=== PATIENT | male | born 1945 | race Caucasian/White ===

== ENCOUNTER → 2020-12-14 13:31 | Outpatient (CLI) | payer OTHER, SELFPAY ==
--- NOTE | 2020-12-14 13:38 | DI.RAD.S_ITS ---
PROCEDURE: XR LUMBAR SPINE MIN 4V INDICATIONS: back pain TECHNIQUE: 5 views of the lumbar spine acquired, including flexion and extension views. COMPARISON: None. FINDINGS: Bones: 5 nonrib-bearing vertebrae are present. Mild dextrocurvature centered at the L2 level. Moderate multilevel disc degeneration, most notably at the L5-S1 level. Moderate L3-L4, L4-L5 and L5-S1 facet joint arthropathy. No vertebral body compression fractures. No suspicious bony lesions. Oblique views demonstrating no pars interarticularis defects. Soft tissues: Overlying bowel gas pattern is normal. No suspicious soft tissue calcifications. Vascular calcifications indicate atherosclerosis. IMPRESSION: Multilevel spondylosis. Dictated by: Bruno RODRIGUEZ Interpreted: Nathalia Laurent MD on 12/14/2020 at 14:00 Approved by: Nathalia Laurent M.D. on 12/14/2020 at 18:15
== END ==
PROVIDERS: PCP Family Medicine; Referring Provider Physical Medicine & Rehabilitation; Visit Provider Physical Medicine & Rehabilitation
DX: M54.9 Dorsalgia, unspecified (principal); M47.816 Spondylosis without myelopathy or radiculopathy, lumbar region; M47.817 Spondylosis without myelopathy or radiculopathy, lumbosacral region
CPT/HCPCS: 72110

== ENCOUNTER → 2021-02-04 07:17 | Outpatient (CLI) | payer OTHER, SELFPAY ==
[2021-02-07 16:44] LABS: COVID19 -Nasal RAPID Negative (Negative)
== END ==
PROVIDERS: PCP Family Medicine; Visit Provider Physical Medicine & Rehabilitation
DX: Z20.822 Contact with and (suspected) exposure to COVID-19 (principal)
CPT/HCPCS: 87635

== ENCOUNTER 2021-02-08 12:47 | Outpatient (CLI) | payer OTHER, SELFPAY ==
[2021-02-08] VITALS (10 sets, daily range): BP systolic 137–170; BP diastolic 60–81; PULSE 55–72; RESP 11–20; TEMP 36.6; O2SAT 95–99
--- NOTE | 2021-02-08 12:51 | DI.RAD.S_ITS ---
PROCEDURE: PAIN L/S FACET INJ/BLK 1ST WILBERT COMPARISON: [facility], CR, XR LUMBAR SPINE MIN 4V, 12/14/2020, 13:38. INDICATIONS: SPONDYLOSIS FINDINGS: Fluoroscopic spot filming was performed to verify placement of spinal needles at the L2-L3 level on both sides at the L4-L5 level on both sides, as labeled on the films. Appropriate location of the needle tips was confirmed by injection of iodinated contrast. IMPRESSION: Intraprocedural examination within normal limits. Dictated by: Bart Sandy M.D. on 02/08/2021 at 14:38 Approved by: Bart Sandy M.D. on 02/08/2021 at 14:38
[2021-02-08] MEDS: fentaNYL 100 MCG/2 ML INJ 50 MCG IV (13:37)
[2021-02-08] MEDS: LIDOCAINE 1% 20 ML 10 ML INJ (13:40)
[2021-02-08] MEDS: IOPAMIDOL 15 ML VIAL 3 ML INJ (13:40)
[2021-02-08] MEDS: BUPIVACAINE 0.5% (PF) VIAL 5 ML INJ (13:40)
[2021-02-08] MEDS: BETAMETHASONE 30 MG/5 ML MDV 12 MG INJ (13:40)
[2021-02-08] MEDS: MIDAZOLAM 5 MG/5 ML VIAL IV (13:48)
--- NOTE | 2021-02-08 13:56 | P.PCN_ITS ---
Date/Time/Diagnoses Date of procedure: 02/08/21 Time of procedure: 13:56 Pre-procedure diagnosis: 1. FACET ARTHROPATHY 2. AXIAL LBP 3. MULTILEVEL DDD Post-procedure diagnosis: same Procedure Notes Procedure: 1. FLUOROSCOPICALLY GUIDED CONTRAST CONTROLLED FACET JOINT INJECTIONS BILATERAL L2/3, L4/5 Indications: August is referred by Dr. Bean for treatment of Axial LBP Physician: Julian Adamson Total Fluoroscopy time (seconds): 13 Total sedation minutes: 16 Complications: none Procedure in detail & Post-procedure care: FINDINGS Multilevel Facet Arthropathy with Clinically significant axial LBP DESCRIPTION OF PROCEDURE Fluoroscopically guided, contrast-controlled bilateral L2/3, L4/5 facet joint injections. Following review of allergy and review of potential side effects and complications, including, but not necessarily limited to, infection, allergic reaction, local tissue breakdown, stroke, temporary or permanent nerve injury, paralysis, and possible , the patient indicated that the patient understood and agreed to proceed. An informed consent document was signed by the patient, witnessed by a nurse, and placed in the patient's chart. Additionally, other treatment options including medications, modalities, and physical therapy were reviewed with the patient. After review of previous anaesthesic history and IV conscious sedation the patient was deemed safe to proceed with today's procedure with IV conscious sedation as ASA class II designation. Safety time-out was performed to confirm patient ID, procedure to be performed and site of procedure. IV sedation was accomplished with a combination of 3mg of Versed and 50mcg of Fentanyl administered by the RN after DO order, titrated to patient comfort during the course of the procedure while the patient remained responsive to all verbal commands In the prone position, following sterile prep and drape of the lumbar region, the posterior aspect of the L2/3, L4/5 facet joints were identified fluoroscopically. The skin was anesthetized via a 25-gauge 1.5-inch needle with 1% lidocaine solution into the corresponding facet joints. At this point, a 22- gauge 3.5-inch spinal needle was atraumatically introduced and advanced under fluoroscopic guidance into the corresponding facet joints. Following negative aspiration, injections of approximately 0.2cc of Isovue 200 confirmed interart icular placement without vascular uptake. The identical procedure was then performed at the L2/3, L4/5 facet joints on the left. Radiological data, including multiple fluoroscopic views of the lumbosacral spine, reveal a spinal needle at the L2/3, L4/5 facet joints bilaterally. Subsequent views show flow of contrast material both superiorly and inferiorly within the joint space without vascular or intrathecal uptake. At this point, a total of 0.5cc including a mixture of 0.25cc Marcaine and 0.25cc betamethasone was injected without complication into each of the corresponding facet joints. The patient tolerated the procedure well without signs or symptoms of complications prior to transfer to the recovery area continued monitoring without incident. The patient was then transferred to the recovery area where they were observed for an appropriate period of time after the injection. The patient reported a VAS score of 7 prior to the procedure and a post-procedure VAS of 0. POST OP INSTRUCTIONS The patient was provided a Pain Log to continue to record their response to the target-specific procedure prior to follow-up visit with their referring phys ician. Additionally, specific post-injection care instructions and a contact number to our office were provided if concerns arise regarding possible complications associated with the procedure are suspected.
== END 2021-02-08 14:15 | disposition home or self-care (01) ==
LOC: RAD 12:50
PROVIDERS: PCP Family Medicine; Referring Provider Family Medicine; Visit Provider Physical Medicine & Rehabilitation
DX: M47.816 Spondylosis without myelopathy or radiculopathy, lumbar region (principal); M48.00 Spinal stenosis, site unspecified; M51.36 Other intervertebral disc degeneration, lumbar region
CPT/HCPCS: 64493; 64494; 99152; J0702; J2250; J3010

== ENCOUNTER → 2021-06-17 15:03 | Outpatient (CLI) | payer OTHER, SELFPAY ==
--- NOTE | 2021-06-17 15:05 | DI.MRI.S_ITS ---
PROCEDURE: MR LUMBAR SPINE WO CON INDICATIONS: Other spondylosis with radiculopathy TECHNIQUE: Noncontrast sagittal T1 spin echo and T2 fast echo, sagittal STIR, axial T1 and T2 fast spin echo through the lumbar spine. In cases with scoliosis, additional coronal T2 fast spin echo may be performed. COMPARISON: [facility], RG, MRI L-SPINE W/WO CONTRAST, 08/13/2020, 16:58. [facility], RG, MRI L-SPINE W/O CONTRAST, 07/05/2017, 10:00. [facility], CR, XR LUMBAR SPINE MIN 4V, 12/14/2020, 13:38. FINDINGS: Image quality: This examination is limited by involuntary motion artifact. Alignment and Curvature: There is minimal retrolisthesis at the L1-L2 level and the L4-L5 level. Mild dextroconvex scoliotic curvature is seen. Bone Marrow: Marrow is of normal overall signal. No acute vertebral body compression fractures. Spinal Cord: Conus medullaris terminates at the T12-L1 level. Visualized cord demonstrates normal signal and size. Paraspinous Soft Tissues: No paravertebral masses. This patient has transitional lumbar anatomy. For the purposes of this examination, the level with the last well-developed disc space is considered to be L5-S1. This numbering scheme is chosen to remain consistent with the prior outside lumbar spine report. T12-L1: The disc height and disk signal are well-preserved. Mild generalized disc bulge is seen. Moderate facet joint hypertrophy is seen. Moderate bilateral neural foraminal narrowing is seen. No significant central canal narrowing is seen. These imaging findings have progressed compared to the prior study. L1-L2: The disc height is well-preserved. Loss of disc signal is seen at this level. Moderate disc bulge is seen, which is eccentric to the right. Moderate facet joint hypertrophy is seen. Moderate bilateral neural foraminal narrowing is seen. Moderate central canal narrowing is seen. The degree of central canal narrowing is progressed compared to the prior. L2-L3: Mild loss of disc height is seen. Loss of disc signal is seen. At least moderate disc bulge is seen. There is a central/left disc protrusion. At least moderate facet hypertrophy is seen. Associated hypertrophy of the ligamentum flavum can be seen. There is mild right-sided and at least moderate left-sided neural foraminal narrowing seen. There is a mild degree of compression seen upon the exiting left L2 nerve root. Moderate to severe central canal narrowing is seen, as on series 5, image 15. These degenerative changes are slightly progressed compared to 2020. L3-L4: The disc height is well-preserved. Loss of disc signal is seen at this level. Moderate disc bulge is seen, with a central disc protrusion. Moderate to prominent facet hypertrophy is seen at this level. There is at least moderate right-sided and moderate to severe left-sided neural foraminal narrowing seen. A degree of compression can be seen upon the exiting left L3 nerve root. Moderate central canal narrowing is seen. The degree of central canal narrowing is slightly progressed compared to 2020. L4-L5: Moderate loss of disc height is seen. Loss of disc signal is seen. Moderate disc bulge is seen, which is eccentric to the right. There is a mild central disc protrusion. There is a focal annular fissure seen posteriorly. At least moderate facet hypertrophy is seen at this level. There is at least moderate bilateral neural foraminal narrowing seen. There is a degree of compression seen upon the exiting nerve roots. Moderate to severe central canal narrowing is seen. Stable from the prior study. L5-S1: The disc height and disc signal are relatively well preserved. Mild generalized disc bulge is seen. Moderate facet joint hypertrophy is seen. There is moderate right-sided and no significant left-sided neural foraminal narrowing seen. No significant central canal narrowing is seen. No significant change from the prior. IMPRESSION: Multiple levels of lumbar spine degenerative change are seen, which are mildly progressed at several levels compared to 2020. Dictated by: Bart Sandy M.D. on 06/17/2021 at 18:04 Approved by: Bart Sandy M.D. on 06/17/2021 at 18:11
--- NOTE | 2021-06-17 15:59 | DI.RAD.S_ITS ---
PROCEDURE: XR HIP W PEL IF DONE BILAT 2V INDICATIONS: BILATERAL HIP PAIN TECHNIQUE: 3 views of the hip were acquired. COMPARISON: None. FINDINGS: Bones: No fractures or dislocations. No suspicious bony lesions. The visualized pelvic ring appears intact. Mild joint narrowing with periarticular osteophyte formation of the hip joint bilaterally. Degenerative disc and facet disease involves the inferior lumbar spine. Soft tissues: No suspicious soft tissue calcifications or masses. IMPRESSION: Mild symmetric hip joint degeneration and degenerative disc and facet disease involving the lower lumbar spine. Dictated by: Bruno Mabry [facility] Interpreted: Stanislav Portillo MD on 06/17/2021 at 16:23 Transcribed by: REGIS on 06/17/2021 at 16:25 Approved by: Stanislav Portillo M.D. on 06/17/2021 at 17:55
== END ==
PROVIDERS: PCP Family Medicine; Referring Provider Neurological Surgery; Visit Provider Neurological Surgery
DX: M47.26 Other spondylosis with radiculopathy, lumbar region (principal); M25.551 Pain in right hip; M25.552 Pain in left hip; M16.0 Bilateral primary osteoarthritis of hip
CPT/HCPCS: 72148; 73521

== ENCOUNTER → 2024-10-27 10:57 | Outpatient (CLI) | payer OTHER, SELFPAY ==
--- NOTE | 2024-10-27 11:00 | EKG_ITS ---
[place] [id number] [place] [id number] Test Date: 2024-10-27 Pat Name: August Reyes Department: [facility] Room: Gender: Male [employer]: EVON : 1945 Requested By: Order Number: [id number] Reading MD: Forrest Moreno MD Measurements Intervals [place] Rate: 67 P: 28 MT: 180 QRS: -27 QRSD: 94 T: -7 QT: 388 QTc: 409 Interpretive Statements Normal sinus rhythm Minimal voltage criteria for LVH, may be normal variant ( R in aVL ) Electronically Signed On 10-27-2024 16:46:02 PST by Forrest Moreno MD
[2024-10-27 12:15] LABS: Add Manual Diff / Slide Review NO; Basophils Absolute Auto 100 /uL (0-100); Basophils Percent Auto 1.2 % (0-2); Eosinophils Absolute Auto 100 /uL (0-450); Eosinophils Percent Auto 1.3 % (2-4); Hematocrit 40.8 % (41-53); Hemoglobin 13.7 g/dL (13.5-17.5); Lymphocytes Absolute Auto 2100 /uL (1100-4500); Lymphocytes Percent Auto 32.7 % (25-40); Mean Corpuscular HGB Conc 33.6 % (30-36); Mean Corpuscular Hemoglobin 29.8 PG (26-34); Mean Corpuscular Volume 88.8 fL (80-100); Monocytes Absolute Auto 500 /uL (0-900); Monocytes Percent Auto 7.4 % (3-14); Neutrophils Absolute Auto 3800 /uL (1500-7000); Neutrophils Percent Auto 57.4 % (50-75); Platelet Count 257 X10^3/uL (150-400); Red Cell Distribution Width 13.6 % (11.6-14.8); White Blood Cell Count 6.6 X10^3/uL (4.5-11.0)
[2024-10-27 12:24] LABS: Hemoglobin A1C% w Est Avg Glu 5.8 % (4.0-6.0)
[2024-10-27 12:31] LABS: Appearance Urine UA CLEAR; Bilirubin Urine UA NEGATIVE (NEGATIVE); Color Urine UA YELLOW; Glucose Urine UA NEGATIVE (Negative); Ketones Urine UA NEGATIVE (NEGATIVE); Leukocyte Esterase Urine UA NEGATIVE (NEGATIVE); Nitrite Urine UA NEGATIVE (Negative); Occult Blood Urine UA NEGATIVE (Negative); Protein Urine UA NEGATIVE (Negative); Specific Gravity Urine UA <=1.005 (1.000-1.035); Urobilinogen Urine UA 0.2 E.U./dL (0.2); pH Urine UA 5.5 (4.5-8.0)
[2024-10-27 12:46] LABS: BUN Creatinine Ratio 12.4 (6-22); Blood Urea Nitrogen 15 mg/dL (9-20); Calcium 9.4 mg/dL (8.4-10.2); Carbon Dioxide 26 mmol/L (22-32); Chloride 103 mmol/L (98-107); Estimated Glomerular Filt Rate > 60 mL/min (>60); Glucose 128 mg/dL (80-110); HEMOLYSIS < 15 (0-50); Potassium 4.4 mmol/L (3.4-5.1); Sodium 139 mmol/L (137-145)
[2024-10-27 12:50] LABS: Bacteria Urine None Seen; Culture Indicated Urine Cult Not Indicated; RBC Urine None Seen (0-5/HPF); Squamous Epithelial Cell Urine None Seen (0-5/HPF); Urine Volume 10mL (spun); WBC Urine None Seen (0-5/HPF)
== END ==
PROVIDERS: PCP Family Medicine; Referring Provider Orthopaedic Surgery; Visit Provider Orthopaedic Surgery
DX: Z01.818 Encounter for other preprocedural examination (principal); R73.9 Hyperglycemia, unspecified; Z01.812 Encounter for preprocedural laboratory examination; N39.0 Urinary tract infection, site not specified
CPT/HCPCS: 36415; 80048; 81001; 83036; 85025; 93005; 93010

== ENCOUNTER → 2024-11-27 11:31 | Outpatient (CLI) | payer OTHER, SELFPAY ==
--- NOTE | 2024-11-27 11:33 | DI.US.S_ITS ---
PROCEDURE: US ABD AORTA ANEURYSM SCREEN INDICATIONS: EVAL AAA TECHNIQUE: Real time scanning was performed of the aorta and iliac arteries, with image documentation. COMPARISON: None. FINDINGS: Aorta: Proximal aortic diameter measures 2.4 cm. Mid-aorta measures 2.1 cm. Distal aortic diameter is 1.3 cm. Iliac arteries: Right common iliac artery measures 1.2 cm. Left common iliac artery measures 1.1 cm. IMPRESSION: No evidence of aortic aneurysm. Dictated by: Duarte Meyer M.D. on 11/27/2024 at 13:34 Approved by: Duarte Meyer M.D. on 11/27/2024 at 13:35
== END ==
PROVIDERS: PCP Family Medicine; Referring Provider Physician Assistant; Visit Provider Physician Assistant
DX: I71.40 Abdominal aortic aneurysm, without rupture, unspecified (principal)
CPT/HCPCS: 76706

== ENCOUNTER 2024-12-16 06:15 | Day surgery (SDC) | payer OTHER, SELFPAY ==
[2024-12-08 09:29] VITALS: BMI 29.7
[2024-12-16] VITALS (8 sets, daily range): BP systolic 116–191; BP diastolic 71–91; PULSE 62–84; RESP 12–21; TEMP 36.1–37.1; O2SAT 92–98; BMI 28.9
--- NOTE | 2024-12-16 06:33 | DI.RAD.S_ITS ---
PROCEDURE: XR KNEE LT 1TO2V INDICATIONS: TKA TECHNIQUE: 2 view(s) of the knee acquired. COMPARISON: None. FINDINGS: Bones: Patient is status post knee joint arthroplasty. Hardware components are in expected positions. Visualized bony structures are intact. Soft tissues: Overlying postoperative changes are noted. IMPRESSION: Expected post-operative appearance of a knee arthroplasty. Dictated by: Kassie Garces MD, PhD on 12/17/2024 at 10:47 Approved by: Kassie Garces MD, PhD on 12/17/2024 at 10:47
[2024-12-16] MEDS: VANCOMYCIN 1,000 MG in SODIUM CHLORIDE 0.9% 250 ML 250 MG IV (06:56)
[2024-12-16] MEDS: ACETAMINOPHEN 325 MG TABLET 975 MG PO (06:59)
[2024-12-16] MEDS: FAMOTIDINE 20 MG/2 ML VIAL IV (06:59)
[2024-12-16] MEDS: CELECOXIB 200 MG CAPSULE PO (06:59)
[2024-12-16] MEDS: LACTATED RINGERS 1,000 ML 42 ML IV (06:59)
--- NOTE | 2024-12-16 07:41 | PM.PREOP ---
Pre-operative Note Interval Note History & Physical reviewed/Exam performed by Physician: Yes Changes to H&P: No
--- NOTE | 2024-12-16 07:41 | PM.OP.1 ---
Operative Date/Time/Diagnoses Date of procedure: 12/16/24 Time of procedure: 07:55 Pre-op diagnosis: Left knee OA Post-op diagnosis: same Procedure & Clinicians Procedure: Left total knee arthroplasty Same procedure as scheduled: Yes Indications: The patient has had progressively worsening left knee pain with radiographic changes consistent with arthritis. Non-operative management has failed and the patient has requested total knee replacement. The risks, benefits and alternatives to surgery were discussed with the patient prior to proceeding. Risks discussed included, but were not limited to, failure to relieve pain, stiffness, infection, nerve damage, deep venous thrombosis, pulmonary embolism, stroke, coma, heart attack, permanent paralysis and , as well as the potential need for eventual revision of the prosthetic. Surgeon: Amelie Patel Relationship Advisor: Jeny Laurent Anesthesia Type: General and Spinal Operative Notes Findings: Severe left knee osteoarthritis, adequate stability, adequate bone Closure Type: primary Specimen(s): none sent Prosthetic devices, grafts, tissues, transplants, or devices: Patel and nephmyrna issa BCS2 size 7 femur, size 6 tibia, +9 poly, 35 oval patella Estimated Blood Loss (mL): 250 Blood products transfused: none Tourniquet time (min): 99 Procedure in detail: The patient was seen in the pre-operative area, where the patient identified the left knee as the operative site and this was marked with my initials. The patient received pre-operative antibiotics, and was taken to the operating room and placed on the operative table in the supine position. After satisfactory anesthesia, a manager maritime out was performed. The left leg was encircled with a tourniquet about the proximal thigh, and the leg was prepared from the toes to the tourniquet with ChloroPrep in the usual fashion and draped through sterile drapes. The leg was elevated and exsanguinated with Eschmark bandage and the tourniquet inflated to [250] mmHg pressure. A PA was used during the procedure and was essential for intraoperative retraction and safe implantation of the components. The knee was approached through an approximately 18 cm incision centered over the left knee patella and carried into the knee through a medial parapatellar arthrotomy. Portion of the medial and lateral meniscus was resected. Soft tissue was carefully mobilized around the patella the patella was measured with a caliper. Bone was resected from the patella and the patellar height was reconstituted with up an appropriate sized patellar component. For a cover was then placed on the patella. A small amount of additional medial and lateral meniscus was resected. Audie pins and an adjustable proximal tibial guide was pinned to the tibia in preparation for robotic assisted knee replacement. A plan was carefully taken developed and optimized in order to allow full range of motion and good stability. Cori robotic assisted bur was used for the distal femoral resection. It looked like an appropriate distal femoral cut and the cut was made without difficulty. The rotation was assessed and the appropriate size femoral guide was placed on the distal femur and finishing cuts were made. There was no evidence of notching. The anterior, posterior and chamfer cuts were then made. The posterior osteophytes and soft tissues were then removed. The posterior capsule was injected with part of a mixture of 60 ml 0.25% Marcaine mixed with 266 mg Exparel for post operative pain control. The remainder of this mixture was injected into the capsule and subcutaneous tissues during cement curing. The tibial guide was meticulously adjusted in order to optimize the cut. Proximal tibial cut was made without difficulty. The rotation was assessed. The patient was placed in extension residual medial and lateral meniscus as well as any residual bone was carefully resected. [No] additional tibia was resected. Hemostasis was achieved especially posteriorly. Additional local was injected into the posterior capsule. The extension gap was assessed. The femoral component was trial was placed and the notch was finished. Trial tibial and femoral components were then placed and the knee placed through a range of motion. Range of motion was [0-130], with good stability throughout the range. The trials were then removed, and the tibia was finished. The bone was prepared with pulsatile lavage, and dried with a sponge. Cement was applied and the final prosthetics placed. Excess cement was removed during and after cement curing. A brief Betadine soak was performed. After confirming there was no extruded cement posteriorly, the final tibial insert was placed. The knee was copiously irrigated and the tourniquet deflated. Hemostasis was obtained with the Bovie cautery. The capsule was closed with interrupted # 1 suture. The subcutaneous layer was closed with barbed sutures, and the skin with a running 3-0 V-Lock suture and Surgical glue. An Aquacel Ag dressing was applied and the patient was taken to recovery having tolerated the procedure well. Complications: none Post-operative Condition: stable Disposition: Acute Care Plan for aftercare: The patient will be maintained on a standard total knee replacement protocol with weight bearing as tolerated. The patient will receive aspirin and sequential compression devices for DVT prophylaxis. The patient will be discharged home when safe for the home environment.
[2024-12-16] MEDS: CEFAZOLIN 2 GM/100 ML PREMIX 100 ML IV (08:00)
[2024-12-16] MEDS: TRANEXAMIC ACID 1,000 MG VIAL 1000 MG INJ ×2 (08:10→10:18)
[2024-12-16] MEDS: BUPIVACAINE 0.25% (PF) 60 ML, EPINEPHrine 0.3 MG INJ (08:37)
--- NOTE | 2024-12-16 08:37 | SUR.OPER ---
Supine on padded OR bed. Pillow under head, arms secured on padded armboards <90 degree abduction. Safety belt across torso. Non-operative leg secured with tape over blanket over lower leg. Operative leg secured in DeMayo positioner. Foam padded brace at thigh of operative leg.
[2024-12-16] MEDS: BUPIVACAINE LIPOSOME 266 MG/20 ML VIAL INJ (10:25)
--- NOTE | 2024-12-16 12:00 | PT.IIE ---
Current Diagnoses Unilateral primary osteoarthritis, left knee (12/16/24) Surgery Performed Operation Date: 12/16/24 07:45 Actual Procedures p Total Knee Arthroplasty - Robot(Left) - Amelie Patel MD Surgical History (Last Updated 12/08/24 @ 10:36 by Emily Leija, RN) H/O shoulder surgery (1972) H/O sinus surgery History of carpal tunnel release History of lumbar surgery (2016) Hx of bilateral cataract extraction Hx of prostatectomy (2008) S/P left knee arthroscopy (1988) Medical History (Last Updated 12/08/24 @ 10:38 by Emily Leija, RN) Diabetes Facet arthropathy, lumbar GERD (gastroesophageal reflux disease) HLD (hyperlipidemia) HTN (hypertension) Left knee DJD Multilevel spinal stenosis LUBA on CPAP Prostate cancer Physical Therapy Inpatient Evaluation/Re-Eval M1 PT/OT-IP Prior Functional Status Start: 12/16/24 12:54 Freq: NEEDED Status: Active Protocol: Document 12/16/24 12:00 AB (Rec: 12/16/24 13:10 [id number]) Medical Review Prior Functional Status Medical History Reviewed Yes Communication able to make needs known; with some confusion; very [place] Mobility and Gait pt stated that he was modified independent with all mobilities and ambulation without AD Social History Household Members spouse Living Arrangements House Number of Floors (Floors) Two Floors Number of Stairs To Enter/Railing? 2 steps without rails to enter has 7 steps R rail ascending + 6 steps B rail to get to bedroom level pt plans to stay on the first level of the house for a few days and will be sleeping on a recliner Home Environment Standard Height Toilet,Walk in Shower Home Equipment Front Wheel Walker,Straight Cane Additional Social History Comment pt has an adjustable bed and a recliner M2 PT-IP Current Condition Start: 12/16/24 12:54 Freq: NEEDED Status: Active Protocol: Document 12/16/24 12:00 AB (Rec: 12/16/24 13:10 AB [id number]) Physical Therapy Current Condition Current Condition Evaluation Date 12/16/24 Treatment Diagnosis s/p L TKA; difficulty in walking Onset Date 12/16/24 M3 PT-IP Subjective Start: 12/16/24 12:54 Freq: NEEDED Status: Active Protocol: Document 12/16/24 12:00 AB (Rec: 12/16/24 13:10 AB [id number]) Subjective Physical Therapy Visit Type Type Initial Evaluation Visit Start Time 12:00 Visit Stop Time 12:51 Number of IRRIGATION SYSTEM INSTALLER Visits 0 Physical Therapy Visit Comments Patient Comments agreeable to do PT Therapy Pain Assessment Pain When Pain Assessed At Rest Pain Present Pain Present Pain Reported Location Left Knee Intensity 3 Pain Management Techniques Apply Cold,Distraction, Modification of Treatment,Re- positioning,Timing of Activity with Medications M4 PT-IP Mobility and Gait Start: 12/16/24 12:54 Freq: NEEDED Status: Active Protocol: Document 12/16/24 12:00 AB (Rec: 12/16/24 13:10 AB [id number]) PT-Bed Mobility Assessment Supine to Sit Supine to Sit Standby Assistance Sit to Supine Sit to Supine Standby Assistance PT-Transfer Assessment Sit to and From Stand Sit to and from Stand Contact Guard Assistance,1 Person Assistance,Use of Upper Extremities Equipment Transfer Assistive Device Gait Belt,Front Wheeled Walker Orthotic/Prosthetic Devices or Brace: No Comments Mobility Comments pt seen in PACU. pt in bed. spouse in room. obtained PLOF and home set up. BP: 140/72. pt completed supine to sit SBA . able to sit on EOB SBA. no c /o dizziness. BP: 144/78. completed sit to stand CGA and ambulated in room ~ 20 ft CGA . pt sat back on EOB. caregiver training conducted. educated spouse on how to use safety belt and how to assist pt. spouse was able to put safety belt on pt and assisted pt with sit to stand and ambulation in room using fWW ~ 25 ft CGA. pt sat back on EOB. stair climbing training. educated pt and spouse on how to do stairs using SPC + COOK CHILL TECHNICIAN. PT assisted pt on first attempt requiring mod to max A and max cues. spouse assisted pt but needing max cues from PT on how to do stairs safely. spouse gets anxious easily and also has memory issues. repeated up/ down steps 3 more times with spouse assisting and cueing pt . advised spouse to have another pt to assist them for pt to safely get into the house. spouse stated that they has a neighbor that might assist them. pt sat back on EOB. post-op folder provided and reviewed contents. pt completed sit to supine SBA. positioned pt in bed. ice machine on. left pt with spouse and OT. pt and spouse without further concerns. Gait Assessment Gait Gait Assistance Required: Standby Assistance Distance (Feet) 25 Able to Maintain Weight Bearing Status Yes During Gait Assistive Devices Assistive Device Gait Belt,Front Wheeled Walker Orthotic/Prosthetic Devices or Brace: No Gait Deviations General Gait Pattern Antalgic,Decreased Stride Length,Decreased Feet Clearance Factors Limiting Gait Function Factors Limiting Gait Function Decreased Activity Tolerance, Decreased Strength,Difficulty Following Directions,Limited Range of Motion,Pain,Poor Balance,Poor Safety Awareness Stair Climbing Assessment Evaluation Level of Assist On Stairs Moderate Assistance,Maximal Assistance,1 Person Assistance Devices Stair Climbing Assistive Devices Straight Cane Technique/Endurance Stair Climbing Direction Ascend and Descend Stair Climbing Technique Step to Step Number of Steps Climbed 1 Query Text: Stair Climbing Set # Repetitions (reps) 5 PT-Balance Assessment Sitting Balance and Reactions Static Sitting Balance Ability Normal Dynamic Sitting Balance Ability Good Standing Balance and Reactions Static Standing Balance Ability Fair Dynamic Standing Balance Ability Fair Device Used FWW M5 PT-IP Objective Assessments Start: 12/16/24 12:54 Freq: NEEDED Status: Active Protocol: Document 12/16/24 12:00 AB (Rec: 12/16/24 13:10 [id number]) Orientation Orientation/Cognition Level of Alertness Alert Orientation Name,Place,Situation Language Function Ability Hard of Hearing Safety Awareness Decreased Safety Awareness Memory Description Short Term Impaired Comments with slight confusion Gross Range of Motion Lower Extremity ROM Assessment Left Impaired Impairments L knee flexion: ~ 70 deg Strength Lower Extremity Strength Assessment Left Impaired Knee 3+/5 Sensation Assessment Sensation Gross Sensation WNL Muscle Tone Muscle Tone WNL Yes M6 PT-IP Treatment Start: 12/16/24 12:54 Freq: NEEDED Status: Active Protocol: Document 12/16/24 12:00 AB (Rec: 12/16/24 13:10 [id number]) Physical Therapy Treatment Education Education Provided Precautions,Weight Bearing Status,Post-Op Packet,Safety M7 PT-IP Assessment and Plan Start: 12/16/24 12:54 Freq: NEEDED Status: Active Protocol: Document 12/16/24 12:00 AB (Rec: 12/16/24 13:10 [id number]) PT Summary Assessment and Plan Potential Rehabilitation Potential Fair Summary Impairments Pain,ROM,Strength,Balance, Coordination,Sensation,Tone, Cognition,Bed Mobility, Transfers,Gait,Activity Tolerance Assessment Summary pt is an 79 y/o M s/p L TKA POD 0. pt is WBAT on LLE. pt requiring CGA with transfers and ambulation and mod to max A for stair climbing using SPC + COOK CHILL TECHNICIAN. caregiver training conducted and spouse able to assist pt. Recommending pt to have another person to assist them to get into the house for safety. pt has out pt PT set up. Goals Bed Mobility Goal Independent Transfer Goal Independent,Front Wheeled Walker Gait Goal Independent,Front Wheel Walker Gait Distance 250 Other Goals up/down 2 steps using SPC +COOK CHILL TECHNICIAN SBA Days to Meet Goals 5 Frequency of Treatment Frequency Of Treatment Twice a Day Treatment Plan Physical Therapy Treatment Plan Bed Mobility Training,Transfer Training,Gait Training, Therapeutic Exercise,Balance Retraining,Post Op Education, Discharge Planning,Hot or Cold Pack,Neuromuscular Re-ed, Coordination Retraining,Manual Therapy Weight Bearing Status Weight Bearing Status Weight Bear as Tolerated Allowed Weight Bearing Amount (enter % LLE WBAT or #) (%) Recommendations To Nursing Amount of Assist Needed 1 Person Assist Discharge Recommendations PT Discharge Recommendations Home with Assistance, Outpatient PT Transportation Needs at Discharge Private Vehicle
--- NOTE | 2024-12-16 12:10 | SUR.PHASEII ---
physical therapy at bedside.
--- NOTE | 2024-12-16 12:55 | OT.IP.EVAL ---
Current Diagnoses Unilateral primary osteoarthritis, left knee (12/16/24) Surgery Performed Operation Date: 12/16/24 07:45 Actual Procedures p Total Knee Arthroplasty - Robot(Left) - Amelie Patel MD Past Medical History (Last Updated 12/08/24 @ 10:38 by Emily Leija, RN) Diabetes Facet arthropathy, lumbar GERD (gastroesophageal reflux disease) HLD (hyperlipidemia) HTN (hypertension) Left knee DJD Multilevel spinal stenosis LUBA on CPAP Prostate cancer Surgical History (Last Updated 12/08/24 @ 10:36 by Emily Leija, RN) H/O shoulder surgery (1972) H/O sinus surgery History of carpal tunnel release History of lumbar surgery (2016) Hx of bilateral cataract extraction Hx of prostatectomy (2008) S/P left knee arthroscopy (1988) Occupational Therapy Inpatient Evaluation/Re-Eval M1 PT/OT-IP Prior Functional Status Start: 12/16/24 12:54 Freq: NEEDED Status: Active Protocol: Document 12/16/24 12:05 [facility] (Rec: 12/16/24 13:32 [facility] [id number]) Medical Review Prior Functional Status Medical History Reviewed Yes Communication able to make needs known; with some confusion; very [place] Mobility and Gait pt stated that he was modified independent with all mobilities and ambulation without AD Activities of Daily Living and IADL's pt states was independent prior with ADL needs Social History Household Members spouse Living Arrangements House Number of Floors (Floors) Two Floors Number of Stairs To Enter/Railing? 2 steps without rails to enter has 7 steps R rail ascending + 6 steps B rail to get to bedroom level pt plans to stay on the first level of the house for a few days and will be sleeping on a recliner Home Environment Standard Height Toilet,Walk in Shower Home Equipment Front Wheel Walker,Straight Cane Additional Social History Comment pt has an adjustable bed and a recliner M2 OT-IP Current Condition Start: 12/16/24 13:19 Freq: Status: Active Protocol: Document 12/16/24 12:05 [facility] (Rec: 12/16/24 13:32 [facility] [id number]) Occupational Therapy Current Condition Current Condition Evaluation Date 12/16/24 Treatment Diagnosis s/p LTKA Diagnosis Onset Date 12/16/24 M3 OT- IP Subjective and Pain Start: 03/04/25 13:19 Freq: Status: Active Protocol: Document 12/16/24 12:05 [facility] (Rec: 12/16/24 13:32 [facility] [id number]) OT- Subjective Occupational Therapy Visit Type Type Initial Evaluation Visit Start Time 12:05 Visit Stop Time 12:55 Occupational Therapy Visit Comments Patient Comments Pt agreed to get up. Pt's present for caregiver training . Patient/Caregiver Goals To go home. OT Pain Assessment Pain When Pain Assessed During Mobility Pain Present Pain Present Pain Reported Location Left Knee Intensity 2 Scale Used Numeric (0 - 10) M4 OT- IP ADL's Start: 12/16/24 13:19 Freq: Status: Active Protocol: Document 12/16/24 12:05 [facility] (Rec: 12/16/24 13:32 [facility] [id number]) OT ADL-Dressing General Eval Lower Body Dressing Ability Maximum Assistance Comments OT Dressing Comments Able to go over use of LB dressing equipment as needed or to assist. Educated to be sure not to twist his knee during ADL needs. OT ADL-Toileting Comments OT Toileting Comments Suggested to have a urinal and that his to sleep downstairs to assist him if needing to get to the bathroom . OT ADL-Bathing Comments OT Bathing Comments Spoke of care for the dressing and sponging off initially until feeling better as pt's shower in too small to place a shower chair in. M5 OT- IP IADL's Start: 12/16/24 13:19 Freq: Status: Active Protocol: Document 12/16/24 12:05 [facility] (Rec: 12/16/24 13:32 [facility] [id number]) OT-Instrumental Activities of Daily Living Home Safety Awareness Home Safety Comments Pt is a little groggy and insistent that he will be fine at home. Meal Preparation Meal Preparation Caregiver Provides Assist [employer] Caregiver Provides Assist M6 OT- IP Functional Cognition Start: 12/16/24 13:19 Freq: Status: Active Protocol: Document 12/16/24 12:05 [facility] (Rec: 12/16/24 13:32 [facility] [id number]) Cognitive Factors Limiting Selfcare Function Cognitive Ability Level of Alertness Alert Patient Orientation Name,Place,Situation Attention Span Ability Capable of Focused Attention, Capable of Sustained Attention Ability to Follow Commands Able to Follow One Step Commands Cognitive Comments Cognitive Assessment Comments Pt's needing repeated practice in how to assist pt for the steps. Suggested best to have another person present when trying to get into the house. Pt's states to try to have her neighbor assist them. Pt is a little groggy and slightly impulsive at this time. OT- Vision and Hearing OT- Hearing Assessment OT- Hearing Assessment Hearing Impaired,Use of Hearing Aids OT- Vision Assessment Visual Acuity Glasses For Reading M7 OT- IP Mobility and Balance Start: 12/16/24 13:19 Freq: Status: Active Protocol: Document 12/16/24 12:05 [facility] (Rec: 12/16/24 13:32 [facility] [id number]) OT- Bed Mobility Assessment Supine to Sit Supine to Sit Assist Standby Assistance OT-Transfer Assessment Sit to and From Stand Sit to and from Stand Contact Guard Assistance Transfers Transfer Ability Contact Guard Assistance Comments Mobility Comments CGA to stand and walk with the FWW. Pt needing more assist for the steps as PT able to train the how best to assist him. OT- Balance Assessment Sitting Balance and Reactions Static Sitting Balance Ability Good Dynamic Sitting Balance Ability Good Standing Balance and Reactions Static Standing Balance Ability Fair Dynamic Standing Balance Ability Fair M8 OT- IP Objective Assessments Start: 12/16/24 13:19 Freq: Status: Active Protocol: Document 12/16/24 12:05 [facility] (Rec: 12/16/24 13:32 [facility] [id number]) OT Gross Range of Motion Upper Extremity Range of Motion Assessment Within Functional Limits OT Strength Upper Extremity Strength Assessment Within Functional Limits M9 OT- IP Assessment and Plan Start: 12/16/24 13:19 Freq: Status: Active Protocol: Document 12/16/24 12:05 [facility] (Rec: 12/16/24 13:32 [facility] [id number]) OT Summary Assessment and Plan Potential Rehabilitation Potential Excellent Analytic Complexity at Evaluation Low Summary OT Impairments Pain,Strength,Balance, Functional Mobility,Dressing, Toileting,Bathing,Toilet Transfers,Shower Transfers Progress Towards Goals Progressing Toward Goals Assessment Summary Pt low complexity and main barriers are steps, pain, and a little groggy and needign vc for safety awareness. Able to go over caregiver training with pt's for ADL's and mobility needs. Pt to go home when medically stable. Pt to go home with 24/7 assist available and outpt PT. Goals Self-Feeding Goal Independent Grooming Goal Independent Dressing Goal Minimal Assistance Toileting Goal Independent Bathing Goal Minimal Assistance Toilet Transfer Goal Standby Assistance Shower Transfer Goal Contact Guard Assistance Days to Meet Goals 5 Frequency of Treatment Other frequency 5x/week Treatment Plan OT Treatment Plan ADL Training,Functional Mobility,Patient/Family Education,Discharge Planning Discharge Recommendations OT Discharge Recommendations Home with 24/ Assist Available,Outpatient PT Home Equipment Needs urinal Transportation Needs at Discharge Private Vehicle
== END 2024-12-16 13:35 | disposition home or self-care (01) ==
LOC: OR 06:15 → AC 06:16
PROVIDERS: PCP Family Medicine; Referring Provider Orthopaedic Surgery; Visit Provider Orthopaedic Surgery
PROC: 0SRD0JZ Replacement of Left Knee Joint with Synthetic Substitute, Open Approach (ICD-10-PCS; CPT 27447; principal; 2024-12-16 07:45)
DX: M17.12 Unilateral primary osteoarthritis, left knee (principal); M25.762 Osteophyte, left knee
CPT/HCPCS: 27447; 20985; 73560; 97162; 97165; 97530; 97535; C1776; C1713; J0171; J0666; J0690; J1171; J2250; J2405; J2704; J3010

== ENCOUNTER → 2024-12-22 15:25 | Outpatient (CLI) | payer OTHER, SELFPAY ==
--- NOTE | 2024-12-22 15:26 | DI.US.S_ITS ---
PROCEDURE: US PERIPH VENOUS LOW EXTREM LT INDICATIONS: R/O DVT,STATUS POST LEFT KNEE REPLACEMENT TECHNIQUE: Real-time imaging, as well as color and pulse Doppler interrogation, were performed of the lower extremity deep veins from the inguinal ligament to the popliteal fossa, with documentation of the visualized calf veins. COMPARISON: None. FINDINGS: The common femoral, femoral, popliteal, and the visualized calf veins are normally compressible, and free of intraluminal thrombus. Color and pulse Doppler demonstrate normal phasic intraluminal flow. There is normal augmentation response to distal compression maneuver. Superficial thrombophlebitis of a branch of the greater saphenous vein in the proximal/mid calf. IMPRESSION: No findings of lower extremity deep venous thrombosis. Superficial thrombophlebitis of the greater saphenous vein in the calf. Findings were communicated to patient's doctor's office by the mining engineering technologist. Dictated by: Duarte Meyer M.D. on 12/22/2024 at 17:25 Approved by: Duarte Meyer M.D. on 12/22/2024 at 17:26
== END ==
PROVIDERS: PCP Family Medicine; Referring Provider Orthopaedic Surgery; Visit Provider Orthopaedic Surgery
DX: I80.02 Phlebitis and thrombophlebitis of superficial vessels of left lower extremity (principal); Z96.652 Presence of left artificial knee joint
CPT/HCPCS: 93971